=== PATIENT | female | born 1985 | race Caucasian/White ===

== ENCOUNTER → 2021-10-02 14:35 | Outpatient (CLI) | payer OTHER, SELFPAY ==
--- NOTE | ~2021-10-02 | US_ITS ---
EXAMINATION: US pelvic complete DATE: 10/02/2021 15:15 INDICATION: Enlarged uterus Comparison:04/19/2015 TECHNIQUE: Multiple transabdominal and endovaginal sonographic images of the pelvis performed. FINDINGS: The uterus measures 9.1 x 4.6 x 5.4 cm. There is an IUD present in the endometrium. The end ometrial complex measures 5 mm. The right ovary measures 3.3 x 2.5 x 2.7 cm. and the left ovary measures 2.3 x 1.7 x 1.9 cm. There a re small follicles in each ovary. Normal doppler signal in both ovaries. There is no free fluid in the pelvis. There are no abnormal masses seen on either side. IMPRESSION: 1. Unremarkable pelvic ultrasound. Reviewed, dictated and finalized at location [facility]. E TROOPER
== END ==
PROVIDERS: Visit Provider Nurse Practitioner
DX: N85.2 Hypertrophy of uterus (principal)
CPT/HCPCS: 76856

== ENCOUNTER 2021-10-26 08:25 | Outpatient (CLI) | payer OTHER, SELFPAY ==
--- NOTE | 2021-10-27 12:28 | WPDHOLTEREM ---
Holter/Event Monitor Holter/Event Monitor Date of procedure: 10/26/21 Holter/Event Procedure: 24 Hr Holter Monitor Indications: Palpitations Conclusion: 1. 24 hour holter monitor on 10/26/21. 2. Underlying rhythm is sinus rhythm with sinus arrhythmia. HR range 39-125 bpm; average HR 69 bpm. 3. There are 5 premature supraventricular complexes. No supraventricular tachycardia. 4. There is 1 premature ventricular complex. No ventricular tachycardia. 5. No sinoatrial or atrioventricular blocks. No significant pauses greater than 2 seconds. 6. No symptoms available for correlation.
== END 2021-10-26 08:26 | disposition home or self-care (01) ==
PROVIDERS: PCP Family Medicine; Visit Provider Physician Assistant
DX: R00.2 Palpitations (principal)
CPT/HCPCS: 93225; 93226

== ENCOUNTER 2021-10-28 22:46 | Emergency (ER) | payer OTHER, SELFPAY ==
--- NOTE | 2021-10-28 22:47 | ECG_ITS ---
Measurements Intervals [place] Rate: 106 P: 60 GA: 160 QRS: 69 QRSD: 86 T: 1 QT: 321 QTc: 427 Interpretive Statements SINUS TACHYCARDIA BORDERLINE ST-T WAVE ABNORMALITY- INFERIOR LEADS ABNORMAL ECG Electronically Signed On 10-29-2021 7:06:38 EMAIL MARKETING EXECUTIVE by Claudio Saunders D.O.
[2021-10-28 22:59] VITALS: BP 163/79; PULSE 104; RESP 17; TEMP 36.8; O2SAT 100
[2021-10-29 00:16] VITALS: BP 133/85; PULSE 95; RESP 18; O2SAT 100
--- NOTE | 2021-10-29 00:30 | ED.ARRPALP ---
HPI - Arrhythmia/Palpitations General Chief Complaint: Arrhythmia/Palpitations Stated Complaint: PALPATATIONS X2D Time Seen by Provider: 10/29/21 00:16 Source: patient History of Present Illness HPI narrative: Patient presents with palpitations. Patient reports multiple weeks where she will have episodes of a racing heart and feels shaky. She has been seen by her primary care doctor she reports her TSH was elevated but her electrolytes have been normal. She was placed on Holter monitor on was unsure of her results. She had another episode again today felt like her prior episodes so she came to the ER for evaluation. She denies recent fevers, cough, congestion, nausea, vomiting. She denies any significant family cardiac history. She has prior history of DVT she denies any history of estrogen use she denies recent procedures. She reports she is currently without symptoms Related Data Home Medications Medication Instructions Recorded Confirmed No Home Medications 10/21/19 10/28/21 Allergies Allergy/AdvReac Type Severity Reaction Status Date / Time levofloxacin Allergy Unknown Unknown Verified 10/28/21 23:03 Penicillins Allergy Unknown Unknown Verified 10/28/21 23:03 Review of Systems Review of Systems: CONSTITUTIONAL: Denies fever, chills, or sweats. EYES: Denies visual changes, redness, or discharge. ENT: Denies rhinorrhea, congestion, sore throat, or otalgia. CARDIOVASCULAR: Denies chest pain, palpitations, or edema. RESPIRATORY: Denies cough or dyspnea. GASTROINTESTINAL: Denies abdominal pain, nausea, vomiting, or diarrhea. GENITOURINARY: Denies dysuria or hematuria. SKIN: Denies rash or itching. MUSCULOSKELETAL: Denies back pain, joint pain, or myalgia. NEUROLOGIC: Denies headache, numbness, dizziness, or weakness. PSYCHIATRIC: Denies anxiety or depression. PMFSH Past Medical History Medical History (Updated 10/29/21 @ 00:36 by Ez Brunner MD) Palpitations Family History Family History Mother Diabetes mellitus Family history of malignant neoplasm of ovary Father Hypertension Social History Social History Alcohol intake: never Exam Narrative: GENERAL: Well-appearing, well-nourished, and in no acute distress. HEAD: Normocephalic, atraumatic. EYES: PERRLA and EOMI. ENT: Nares clear, no rhinorrhea or epistaxis. Mucous membranes moist. NECK: Supple. No masses. No JVD CHEST: Clear to auscultation. No respiratory distress. No wheezes rales or rhonchi HEART: Regular rate and rhythm. No murmur heard. Normal peripheral pulses. EXTREMITIES: Normal range of motion. No edema. SKIN: Warm, dry, no rash. NEURO: No focal deficits. Alert and oriented x3. PSYCH: Normal mood and affect. Course Vital Signs Vital signs: Vital Signs Temperature 36.8 C 10/28/21 22:59 Pulse Rate 104 H 10/28/21 22:59 Respiratory Rate 17 10/28/21 22:59 Blood Pressure 163/79 H 10/28/21 22:59 Pulse Oximetry 100 10/28/21 22:59 Temperature 36.8 C 10/28/21 22:59 Pulse Rate 79 10/29/21 00:59 Respiratory Rate 20 10/29/21 00:59 Blood Pressure 116/74 10/29/21 00:59 Pulse Oximetry 97 10/29/21 00:59 MDM - Arrhythmia/Palpitations MDM Narrative Medical decision making narrative: H&P as above, vss, pt looks clinically well, exam reassuring, labs and imaging were offered however patient has had recent evaluation by primary care provider and Holter monitor was unremarkable his EKG was also unremarkable symptomatic relief available as needed. Given duration of symptoms and patient's work-up thus far there is low concern for ACS, PE, dissection, electrolyte abnormalities. I reviewed patient's Holter monitor results with her with a reassuring Holter monitor patient was comfortable following up with her primary care doctor without further testing here in the ER. plan to tx/monitor as op w/ pcm
[2021-10-29 00:59] VITALS: BP 116/74; PULSE 79; RESP 20; O2SAT 97
== END 2021-10-29 00:58 | disposition home or self-care (01) ==
PROVIDERS: Emergency Provider Emergency Medicine; PCP Family Medicine
DX: R00.2 Palpitations (principal); R00.0 Tachycardia, unspecified
CPT/HCPCS: 93005; 99283

== ENCOUNTER 2021-10-30 10:01 | Emergency (ER) | payer OTHER, SELFPAY ==
[2021-10-30 10:19] VITALS: BP 140/89; PULSE 79; RESP 18; TEMP 37.5; O2SAT 100
--- NOTE | 2021-10-30 10:19 | ECG_ITS ---
Measurements Intervals [place] Rate: 71 P: 52 MA: 160 QRS: 69 QRSD: 84 T: 56 QT: 352 QTc: 385 Interpretive Statements SINUS RHYTHM NORMAL ECG Electronically Signed On 10-30-2021 11:45:26 [employer]ER PRINTING SUPERVISOR by Claudio Saunders D.O.
--- NOTE | 2021-10-30 11:08 | ED.SKABFB ---
HPI - Skin/Abscess/Foreign Bdy General Chief complaint: Urogenital-Female Stated complaint: lightheaded,tingling feeling in body Source: patient and RN notes reviewed Limitations: no limitations History of Present Illness HPI narrative: The vaccinated patient,an a.m. coffee drinker/non-smoker/occ drinker, presents with palpitations. Patient states she has been seen by her PMD and ED with noncontributory Holter monitoring & lab tests --except TSH 5.4 in the past. She now complains of similar intermittent usually nighttime palpitations. No fever, cough, precordial chest pain, VHD/CHD, vomiting/diarrhea/dehydration, anemia, vaginal bleeding, no presyncope but she occasionally feels positional lightheadedness. She also mentions she has urinary frequency, urgency without dysuria; no abdominal pain, discharge?declines STD testing. Patient advised and is planning on follow-up of thyroid with her PMD. Related Data Home Medications Medication Instructions Recorded Confirmed No Home Medications 10/21/19 10/30/21 Allergies Allergy/AdvReac Type Severity Reaction Status Date / Time levofloxacin Allergy Unknown Unknown Verified 10/30/21 10:27 Penicillins Allergy Unknown Unknown Verified 10/30/21 10:27 Review of Systems Review of Systems: General/Constitutional: No weight loss,fever Eyes: N0: Redness,discharge Ears/Nose/Throat: No: Epistaxis,ear discharge Respiratory: Denies: Hemoptysis Gastrointestinal: No Vomiting, Bleeding-rectal Skin: No Lumps, eruption Neurologic: No Focal Weakness,Sz Hematologic: Denies: Petechiae/Purpura Psychiatric: No: Suicida ideationl All Other Systems: Reviewed and Negative FORMERLY [facility], 1928–1983 Past Medical History Medical History (Updated 10/30/21 @ 11:02 by Srikanth Sánchez MD) Palpitations Family History Family History Mother Diabetes mellitus Family history of malignant neoplasm of ovary Father Hypertension Social History Social History Alcohol intake: never Comments At time of signature, agree with nursing past medical, surgical, social and family history. There is no relevant family history pertinent to the presenting complaint Exam Narrative: General Appearance: Well appearing, No distress EYE: PERRLA, Conjunctiva clear Ears: External ear normal Nose: Normal nose Mouth/Throat: Normal appearing, Normal lips Neck: Supple Respiratory: Airway patent, No respiratory distress Cardiovascular: RRR Abdomen: Soft, Non-tender, Musculoskeletal: Full ROM Skin: Warm, Dry Neurological: A&O x3, CN II-X intact Psychiatric: Normal mood, Normal affect Course Course Emergency Course: EKG normal sinus rhythm at 71, OK 0.16, QRS 0.08, QTc 0.375, normal axis 60-jaciel Vital Signs Vital signs: Vital Signs Temperature 99.5 F 10/30/21 10:19 Pulse Rate 79 10/30/21 10:19 Respiratory Rate 18 10/30/21 10:19 Blood Pressure 140/89 10/30/21 10:19 Pulse Oximetry 100 10/30/21 10:19 Temperature 99.5 F 10/30/21 10:19 Pulse Rate 79 10/30/21 10:19 Respiratory Rate 18 10/30/21 10:19 Blood Pressure 140/89 10/30/21 10:19 Pulse Oximetry 100 10/30/21 10:19 MDM - Skin/Abscess/Foreign Bdy Lab Data Labs: Urine Glucose Negative Reference Range: Negative Urine Bilirubin Negative Reference Range: Negative Urine Ketone Negative Reference Range: Negative Urine Specific [place] 1.010 Reference Range:1.001-1.035 Urine Blood Negative Reference Range: Negative * * Urine pH
== END 2021-10-30 11:06 | disposition home or self-care (01) ==
PROVIDERS: Emergency Provider Emergency Medicine; PCP Family Medicine
DX: R00.2 Palpitations (principal); R94.6 Abnormal results of thyroid function studies; R35.0 Frequency of micturition
CPT/HCPCS: 81003; 87086; 93005; 99213; G0463

== ENCOUNTER 2021-11-09 08:28 | Outpatient (CLI) | payer OTHER, SELFPAY ==
--- NOTE | 2021-11-09 09:07 | ECHO_ITS ---
Patient Info Name: Karen Downing Age: 36 years : 1985 Gender: Female Ht: 64 in Wt: 140 lbs BSA: 1.70 m2 HR: 64 bpm BP: 126 / 78 mmHg Technical Quality: Good Exam Date: 11/09/2021 9:30 AM Exam Location: [facility] Patient Status: Outpatient Admit Date: 11/09/2021 Staff Ordering Physician: Nathaniel Macario PA-C Splitter Machine: Sherita Severino RDCS Attending Provider: Nathaniel Macario PA-C Referring Physician: Amirah ORNELAS; Exam Type: CA echo doppler color flow Study Info Indications - palpitations Complete two-dimensional, color flow and Doppler transthoracic echocardiogram is performed. Summary 1. Complete two-dimensional, color flow and Doppler transthoracic echocardiogram is performed. 2. Left ventricular chamber dimension is normal. 3. Left ventricular systolic function is normal, estimated at 60-65%. 4. The left ventricular diastolic function is normal. 5. E/e' 6 is not elevated. 6. There is trace tricuspid valve regurgitation. 7. No pulmonary hypertension, estimated pulmonary arterial systolic pressure is 36 mmHg. 8. There is trace pulmonic regurgitation. Left Ventricle E/e' 6 is not elevated. Left ventricular chamber dimension is normal. Left ventricular systolic function is normal, estimated at 60-65%. The left ventricular diastolic function is normal. Right Ventricle Right ventricular chamber dimension is normal. Right ventricular systolic function is normal. Left Atria Left atrial chamber dimension is normal. Right Atria Right atrial chamber dimension is normal. Aortic Valve The aortic valve is trileaflet. There is no aortic valve stenosis. There is no aortic valve regurgitation. Pulmonic Valve There is trace pulmonic regurgitation. Mitral Valve There is no mitral valve stenosis. There is no mitral valve regurgitation. Tricuspid Valve There is trace tricuspid valve regurgitation. No pulmonary hypertension, estimated pulmonary arterial systolic pressure is 36 mmHg. Pericardium/Pleural There is no pericardial effusion. Inferior Vena Cava Normal inferior vena cava with >50% collapse upon inspiration consistent with normal right atrial pressure, 5 mmHg. Aorta The aortic root size at the sinus of Valsalva is normal. Left Ventricular Outflow Tract Name Value Normal LVOT 2D LVOT Diameter 2.0 cm LVOT Doppler LVOT Peak Gradient 7 mmHg LVOT Mean Gradient 4 mmHg LVOT VTI 26 cm LVOT VTI/AV VTI Ratio 0.8 LVOT Stroke Volume 81 ml LVOT CO 17.3 l/min LVOT CI 10.2 l/min/m2 Pulmonic Valve Name Value Normal PV Doppler PV Peak Gradient 4 mmHg Mitral Va
== END 2021-11-09 08:29 | disposition home or self-care (01) ==
PROVIDERS: PCP Family Medicine; Visit Provider Physician Assistant Medical
DX: R00.2 Palpitations (principal)
CPT/HCPCS: 93306

== ENCOUNTER 2022-01-23 14:07 | Outpatient (CLI) | payer BC, SELFPAY ==
--- NOTE | ~2022-01-23 | US_ITS ---
EXAMINATION: US arterial ankle brachial ind DATE: 01/23/2022 14:56 INDICATION: Paresthesias TECHNIQUE: Segmental pressures and plethysmographic and Doppler waveforms of the brachial and lower e xtremity arteries were obtained. COMPARISON: None. FINDINGS: Right and left brachial artery pressures of 98 mm Hg and 117 mm Hg, respectively, are concordant (nor mal difference <= 30 mmHg). The right ankle-brachial index (CORNELIO) is 1.10 (normal >= 0.9-1.0). The right great toe-brachial index (TBI) is 0.44 (normal >= 0.65). Arterial Doppler waveforms are biphasic. The left CORNELIO is 1.08. The left TBI is 0.28. Arterial Doppler waveforms are biphasic. IMPRESSION: Normal right and left CORNELIO of 1.10 and 1.08, respectively Abnormally low TBI of 0.44 on the right and 0.28 on the left, suggesting small vessel disease Reviewed, dictated and finalized at [facility]. Reviewed, dictated and finalized at location A. TRONIC GLUER
== END 2022-01-23 14:08 | disposition home or self-care (01) ==
PROVIDERS: PCP Family Medicine; Visit Provider Physician Assistant Medical
DX: R20.9 Unspecified disturbances of skin sensation (principal)
CPT/HCPCS: 93922

== ENCOUNTER 2024-07-03 14:42 | Outpatient (CLI) | payer BC, SELFPAY ==
--- NOTE | ~2024-07-03 | US_ITS ---
EXAMINATION: US OB <=14 wk fetus w TV DATE: 07/03/2024 15:52 INDICATION: Pelvic pain. TECHNIQUE: Real-time transabdominal and transvaginal pelvic ultrasound was performed. COMPARISON: None. FINDINGS: TRANSABDOMINAL ULTRASOUND: The uterus measures 9.9 x 5.5 x 6.4 cm. TRANSVAGINAL ULTRASOUND: The endometrial complex measures 15 mm in thickness. There is no visible int rauterine gestational sac. The right ovary is not visualized. The left ovary measures 2.7 x 2.4 x 2.2 cm. There is ascites of mixed echogenicity. IMPRESSION: 1. No visible intrauterine gestational sac. This result may be seen with normal early , ect opic , spontaneous . 2. Ascites of mixed echogenicity suspicious for hemoperitoneum. This finding increases suspicion for ectopic . Correlate with beta-hCG. Reviewed, dictated and finalized at location A. IMPRESSION: 1. No visible intrauterine gestational sac. This result may be seen with eliana l early , ectopic , spontaneous . 2. Ascites of mixed echogenicity suspicious for hemoperitoneum. This finding in creases suspicion for ectopic . Correlate with beta-hCG.
== END 2024-07-03 14:43 | disposition home or self-care (01) ==
LOC: ANHIMG 14:46
PROVIDERS: PCP Family Medicine; Visit Provider Obstetrics & Gynecology Gynecology
DX: R10.2 Pelvic and perineal pain (principal)
CPT/HCPCS: 76801; 76817

== ENCOUNTER 2024-07-03 16:39 | Day surgery (SDC) | payer BC, SELFPAY ==
[2024-07-03] VITALS (38 sets, daily range): BP systolic 93–128; BP diastolic 40–79; PULSE 63–106; RESP 14–20; TEMP 36.4–36.6; O2SAT 98–100
--- NOTE | 2024-07-03 16:56 | WPDANESEPPF ---
Anes - Initial Pre Proc Eval Procedure: Diagnostic laparoscopy Date/Time: 07/03/24 16:56 Surgeon: Jayna Pre Op Diagnosis: ruptured ectopic Pre Op Diagnosis: abdominal pain, pt , US shows blood Patient Data Age: 38 Gender: F Height: 1.63 m Weight: 65.9 kg Last Vital Signs Temp 97.8 F 07/03/24 16:44 Pulse 106 H 07/03/24 16:44 Resp 18 07/03/24 16:44 BP 122/79 07/03/24 16:44 Pulse Ox 100 07/03/24 16:44 O2 Del Method Room Air 07/03/24 16:44 Allergies Allergy/AdvReac Type Severity Reaction Status Date / Time levofloxacin Allergy Unknown Unknown Verified 07/03/24 17:10 Penicillins Allergy Unknown Unknown Verified 07/03/24 17:10 Home Medications Medication Instructions Recorded Confirmed Type [id number]-rbv-kfhg 18 mg-FA 400 tablet PO 12/05/21 02/15/23 History mcg-calcium 500 mg-vit K 50 mcg tablet (Women's Multivitamin) ascorbate calcium (vitamin C) 500 500 mg PO BID 01/17/22 02/15/23 History mg tablet cetirizine 10 mg tablet (Zyrtec) 10 mg PO DAILY PRN 01/17/22 02/15/23 History famotidine 20 mg tablet (Pepcid AC) 20 mg PO DAILY 01/17/22 02/15/23 History ecszjbrf-iiv-Q. coag-B. tablet PO DAILY 01/31/22 02/15/23 History subtilis-inulin 1 billion cell-1 gram chew tab (Culturelle Probiotic-Multivit) omega-3 fatty acids-fish oil 300 cap PO 08/16/22 02/15/23 History mg-500 mg capsule (Fish Oil) Patient hx anesthesia problems: none Family hx anesthesia problems: none Results Review: All pre-operative results and documents have been reviewed as part of the pre-operative evaluation. [facility] Past Medical History Medical History Bradycardia COVID-19 long hauler GERD (gastroesophageal reflux disease) Mast cell activation syndrome Palpitations Raynaud phenomenon Ruptured ectopic Family History Family History Mother Diabetes mellitus Family history of malignant neoplasm of ovary Father Hypertension Cancer of kidney Social History Social History Smoking status: Never smoker Alcohol intake: never Substance use: never Substance use type: does not use Lack of Transportation: No Lack of Food: Never True Current Housing: I Have Housing Concerned About Future Housing: No Difficulty Paying Gas/Electric Bills: No Difficulty Paying for Meds: No Currently Unemployed: No Education: Bachelor's Degree Difficulty w/ Childcare or Family Care: No Living arrangements: with family Occupation/Education: occupation Gender identity (if verbalized by the patient): Female Spiritual care concerns: No Anes - Eval Final PreProcedure Day of Procedure 07/03/24 16:56 Patient weight: normal Heart: regular rate and rhythm Lungs: clear to auscultation Airway: Mallampati scale class II Neurological: alert and oriented Last oral intake: 4 hours ASA classification: III Emergent: yes Anesthetic plan: proceed Anesthesia type and monitoring: general and standard monitoring Results Review: All pre-operative results and documents have been reviewed as part of the pre-operative evaluation. Informed Consent: The patient's anesthetic plan and its attendant risks and benefits were discussed with the patient/family/POA. Questions were solicited and answers provided to the satisfaction of the patient/family/POA.
--- NOTE | 2024-07-03 17:00 | ED.ABDPAIN ---
HPI - Abdominal Pain General Chief Complaint: Abdominal Pain Stated Complaint: abdominal pain, pt , US shows blood Time Seen by Provider: 07/03/24 16:59 Source: patient and family Mode of arrival: ambulatory Limitations: no limitations History of Present Illness HPI narrative: 38 years old white female referred to the emergency room from the radiology department for pelvic ultrasound showing possible ectopic . Patient is 4, para 3, 0, workup this morning with lower abdominal pain and vaginal spotting. Called her OBGYN order pelvic ultrasound which showed No visible intrauterine gestational sac. This result may be seen with normal early , ectopic , spontaneous . Ascites of mixed echogenicity suspicious for hemoperitoneum. finding increases suspicion for ectopic . Correlate with beta HCG Dr. Aguilar came to the emergency room to manage the patient. Related Data Home Medications Medication Instructions Recorded Confirmed cetirizine 10 mg tablet (Zyrtec) 10 mg PO DAILY PRN 01/17/22 02/15/23 famotidine 20 mg tablet (Pepcid AC) 20 mg PO DAILY 01/17/22 02/15/23 Allergies Allergy/AdvReac Type Severity Reaction Status Date / Time levofloxacin Allergy Unknown Unknown Verified 07/03/24 17:10 Penicillins Allergy Unknown Unknown Verified 07/03/24 17:10 Review of Systems Review of Systems: All systems reviewed & are unremarkable except as noted in HPI and below PMFSH Past Medical History Medical History Bradycardia COVID-19 long hauler GERD (gastroesophageal reflux disease) History of pyloric stenosis as a child Mast cell activation syndrome (normal spontaneous vaginal delivery) x3 Palpitations Raynaud phenomenon Family History Family History Mother Diabetes mellitus Family history of malignant neoplasm of ovary Father Hypertension Cancer of kidney Social History Social History Smoking status: Never smoker Alcohol intake: never Substance use: never Substance use type: does not use Lack of Transportation: No Lack of Food: Never True Current Housing: I Have Housing Concerned About Future Housing: No Difficulty Paying Gas/Electric Bills: No Difficulty Paying for Meds: No Currently Unemployed: No Education: Bachelor's Degree Difficulty w/ Childcare or Family Care: No Living arrangements: with family Occupation/Education: occupation Gender identity (if verbalized by the patient): Female Spiritual care concerns: No Exam Narrative: General appearance: Well-developed, well-nourished Skin: Normal color Head: Normocephalic, nontraumatic Eyes: Clear conjunctiva ENT: Oropharynx normal, ears normal, nose normal Neck: Supple, nontender Chest and respiratory: Airway patent, no respiratory distress, no accessory muscle use Heart: Regular rate/rhythm Abdomen: Soft, mild diffuse lower abdominal tenderness, no organomegaly, quiet bowel sounds Vascular: Normal peripheral pulses, normal capillary refill. Musculoskeletal: Normal range of motion, nontender back Neurologic: Alert and oriented ?3, CORN SHUCKER is normal as tested, no gross motor deficit Course Vital Signs Vital signs: Vital Signs Temperature 36.6 C 07/03/24 16:44 Pulse Rate 106 H 07/03/24 16:44 Respiratory Rate 18 07/03/24 16:44 Blood Pressure 122/79 07/03/24 16:44 Pulse Oximetry 100 07/03/24 16:44 Oxygen Delivery Room Air 07/03/24 16:44 Temperature 37.2 C 07/04/24 07:45 Pulse Rate 60 06/25
--- NOTE | 2024-07-03 17:10 | PM.HPGS ---
History of Present Illness History of Present Illness Consent: Risks, benefits, and alternatives have been discussed and questions answered. Patient agrees to proceed with procedure. Chief complaint: abdominal pain, pt , US shows blood Narrative: Karen Downing is a 38 year old female @ 7 4/7 wks with onset of abdominal cramping and nausea that began this am. Pain decreased after tylenol but then increased this afternoon. She was sent for a stat ultrasound which shows hemoperitoneum, no intrauterine , no discrete adnexal mass. Patient is now having difficulty breathing due to pain in her right upper quadrant. It was discussed with the patient the likely diagnosis of ruptured ectopic . Plan is to proceed with laparoscopic management. Risks of salpingectomy and oophorectomy are discussed. Typical risks of surgery are also reviewed. Patient agrees to the stated plan. Review of Systems Review of Systems: All systems reviewed & are unremarkable except as noted in HPI and below ( HPI) [facility] Past Medical History Medical History (Updated 07/03/24 @ 17:16 by Sarah Dorantes MD) Bradycardia COVID-19 long hauler GERD (gastroesophageal reflux disease) History of pyloric stenosis as a child Mast cell activation syndrome (normal spontaneous vaginal delivery) x3 Palpitations Raynaud phenomenon Family History Family History Mother Diabetes mellitus Family history of malignant neoplasm of ovary Father Hypertension Cancer of kidney Social History Social History Smoking status: Never smoker Alcohol intake: never Substance use: never Substance use type: does not use Lack of Transportation: No Lack of Food: Never True Current Housing: I Have Housing Concerned About Future Housing: No Difficulty Paying Gas/Electric Bills: No Difficulty Paying for Meds: No Currently Unemployed: No Education: Bachelor's Degree Difficulty w/ Childcare or Family Care: No Living arrangements: with family Occupation/Education: occupation Gender identity (if verbalized by the patient): Female Spiritual care concerns: No Meds Home Medications and Allergies Home Medications Medication Instructions Recorded Confirmed Type jlnuddey-fmg-umbi 18 mg-FA 400 tablet PO 12/05/21 02/15/23 History mcg-calcium 500 mg-vit K 50 mcg tablet (Women's Multivitamin) ascorbate calcium (vitamin C) 500 500 mg PO BID 01/17/22 02/15/23 History mg tablet cetirizine 10 mg tablet (Zyrtec) 10 mg PO DAILY PRN 01/17/22 02/15/23 History famotidine 20 mg tablet (Pepcid AC) 20 mg PO DAILY 01/17/22 02/15/23 History apczaxfs-met-C. coag-B. tablet PO DAILY 01/31/22 02/15/23 History subtilis-inulin 1 billion cell-1 gram chew tab (Culturelle Probiotic-Multivit) omega-3 fatty acids-fish oil 300 cap PO 08/16/22 02/15/23 History mg-500 mg capsule (Fish Oil) Allergies Allergy/AdvReac Type Severity Reaction Status Date / Time levofloxacin Allergy Unknown Unknown Verified 07/03/24 17:10 Penicillins Allergy Unknown Unknown Verified 07/03/24 17:10 Vital Signs Vital Signs - 24 hr 07/03/24 16:44 Temperature 97.8 F Pulse Rate 106 H Respiratory Rate 18 Blood Pressure 122/79 Pulse Oximetry 100 Oxygen Delivery Room Air Exam Const: General: uncomfortable Nutritional Appearance: average body habitus Orientation/consciousness: patient oriented x3 Resp: Effort & Inspection: normal respiratory effort GI: Inspection: normal to inspection GI Palp: Yes Tenderness to palpation present (GI) and Yes Guarding due to palpation present (GI) Assessment and Plan Assessment and plan (1) Ruptured ectopic : Code(s): O00.90 - Unspecified ectopic without intrauterine Status: Acute Assessment and Plan: plan to proc
[2024-07-03 17:15] LABS: Basophils Absolute Auto 0.1 K/mm3 (0.0-0.1); Basophils Percent Auto 0.3 % (0.2-1.2); Eosinophils Percent Auto 0.1 % (0-4.4); Hematocrit 30.2 % (37.0-47.0); Hemoglobin 10.3 g/dL (12.0-15.0); Immature Granulocyte Absolute 0.06 K/mm3 (0.00-0.031); Immature Granulocyte Percent A 0.4 % (0-0.5); Lymphocytes Absolute Auto 1.87 K/mm3 (0.9-3.2); Lymphocytes Percent Auto 11.8 % (18.3-44.2); Mean Corpuscular HGB Conc 34.1 g/dl (32-36); Mean Corpuscular Hemoglobin 31.4 pg (26-34); Mean Corpuscular Volume 92.1 fl (80-100); Mean Platelet Volume 10.6 fl (7.4-10.4); Monocytes Absolute Auto 1.1 K/mm3 (0.1-0.6); Monocytes Percent Auto 6.8 % (2.6-8.5); Neutrophils Absolute Auto 12.7 K/mm3 (1.3-6.7); Neutrophils Percent Auto 80.6 % (45.5-73.1); Platelet Count Result 225 k/mm3 (150-375); Red Blood Count 3.28 M/mm3 (4.2-5.4); Red Cell Distribution Width 11.6 % (11.5-14.5); White Blood Count 15.8 K/mm3 (4.5-10.0)
[2024-07-03] MEDS: SODIUM CHLORIDE 0.9% IV 1,000 ML 999 ML IV CONT (17:17)
[2024-07-03] MEDS: ONDANSETRON INJ 4 MG/2 ML VIAL IV PUSH (17:18)
[2024-07-03] MEDS: HYDROmorphone HCL INJ (*CRX) 1 MG/ML SYR 0.5 MG IV PUSH ×3 (17:19→23:40)
[2024-07-03 17:25] LABS: Alanine Aminotransferase 14 U/L (6-35); Albumin Level 4.3 g/dL (3.5-5.1); Alkaline Phosphatase 40 U/L (38-126); Anion Gap 11 mmol/L (4-12); Aspartate Amino Transferase 26 U/L (14-36); Bilirubin,Total 0.3 mg/dL (0.2-1.3); Blood Urea Nitrogen 12 mg/dL (7-17); Calcium 9.1 mg/dL (8.4-10.2); Carbon Dioxide 21 mmol/L (22-30); Chloride 104 mmol/L (98-107); Estimated CRCL calculation 72 ml/min; Estimated Glomerular Filt Rate > 60; Glucose 145 mg/dL (65-110); Sodium 136 mmol/L (137-145)
[2024-07-03 17:26] LABS: Prothrombin Time 13.4 Seconds (11.1-14.7)
--- NOTE | 2024-07-03 17:28 | PC.NURSE ---
Report given to Starr from OR.
[2024-07-03] MEDS: LACTATED RINGERS 1,000 ML 30 ML IV CONT ×2 (18:00→19:07)
--- NOTE | 2024-07-03 18:12 | P.PNAN_ITS ---
Anes - Eval Final PreProcedure Day of Procedure 07/03/24 18:12 Patient weight: normal Heart: regular rate and rhythm Lungs: clear to auscultation Airway: Mallampati scale class II Neurological: alert and oriented Last oral intake: >/= 8 hours ASA classification: III Emergent: yes Anesthetic plan: proceed Anesthesia type and monitoring: general ETT and standard monitoring Results Review: All pre-operative results and documents have been reviewed as part of the pre- operative evaluation. Informed Consent: The patient's anesthetic plan and its attendant risks and benefits were discussed with the patient/family/POA. Questions were solicited and answers provided to the satisfaction of the patient/family/POA.
--- NOTE | 2024-07-03 18:12 | SUR.PREOP ---
1755 PATIENT ARRIVED TO PACU FROM ED. AWAKE, ALERT, ORIENTED X 3. PATIENT REMOVED ALL CLOTHES AND PUT ON GOWN. OR TEAM HERE. 1800 TRANSPORTED TO OR VIA STRETCHER.
--- NOTE | 2024-07-03 19:04 | P.OP_ITS ---
Procedure Note - Detailed Date of Procedure 07/03/24 Pre-op Diagnosis Ruptured ectopic with hemoperitoneum Post-op Diagnosis Same ( ruptured right ectopic ovarian with adhesion of the ectopic to the small bowel) Procedure Performed right salpingo-oophorectomy Surgeon Sarah Dorantes MD Anesthesia General Findings hemoperitoneum ruptured right ovarian ectopic with tissue adherent to the small bowel normal-appearing bilateral tubes and uterus Description of Procedure The patient is taken to the operating room and placed under anesthesia in the dorsal lithotomy position. She was prepped and draped in the usual sterile f ashion. The bladder was drained with a red rubber catheter. The bivalve speculum was placed in the vagina and the cervix grasped on the anterior lip with a tenaculum. The acorn manipulator was placed. Speculum was removed. Attention was turned to the abdomen. A horizontal skin incision was made at the base of the umbilicus. The abdomen was tented and the Veress needle placed. Opening patient pressure was 5mmHg. Water drop test was normal. Pneumoperitoneum was obtained to a patient pressure of 15mmHg. The Veress needle was removed and the abdomen was again tented while the 5mm Optiview trocar was placed. Intra-abdominal placement was confirmed with the laparoscope. The 2 additional 5mm trocars were placed in the left and right lower quadrants 2cm above symphysis pubis. The visible blood was suctioned until visualization of the organs was possible. Initial findings the ectopic tissue on the small bowel with additional findings of the main ectopic on the right ovary ruptured and bleeding at the distal end. The bilateral tubes appear grossly normal and the left ovary appears grossly normal. The uterine surface appears normal. Pictures of the bowel lesion were sent to Dr. Dudley on-call and as it was not a through and through lesion decision was made to leave it in situ and use methotrexate postoperative. The tube and ovary are elevated and the LigaSure was used to cauterize and cut the infundibulopelvic ligament, the mesosalpinx, and cross-clamp the tube. Good hemostasis was obtained. The 10mm port was exchanged in the left lower quadrant and the Endo-Catch bag was placed through this port. The specimen is placed into the bag and removed while removing the trocar and extending the incision. The large suction is then able to be placed and removed the large clots from the cul-de-sac. The patient was placed in reverse Trendelenburg and additional suctioning of blood is performed. The tubo-ovarian pedicle is again inspected and noted to be hemostatic. The instruments are removed. The left lower incision is closed using 0 Vicryl running in the fascia and all 3 skin incisions are closed using 4-0 Vicryl in a subcuticular fashion. Dermaflex was used over the incisions. The vaginal instruments are removed. The patient was awakened from anesthesia and taken to recovery in stable condition. Sponge, needle, and instrument counts are correct per the OR staff. Estimated Blood Loss 350 Drains No Packing No Pathology Yes ( Right tube and) Complications No immediate complications Condition Stable Disposition PACU
[2024-07-03] MEDS: fentaNYL CITRATE INJ (*CRX) 100 MCG/2 ML VIAL 25 MCG IV PUSH ×4 (19:19→19:45)
[2024-07-03] MEDS: LACTATED RINGERS 1,000 ML 100 ML IV CONT (21:10)
[2024-07-03] MEDS: LORATADINE 10 MG TABLET PO (21:45)
[2024-07-03] MEDS: FAMOTIDINE 20 MG TABLET PO (22:30)
[2024-07-03] MEDS: HYDROcodone/acetaminophen (*CRX) 10-325 MG TABLET 1 TAB PO (22:40)
[2024-07-03] MEDS: SIMETHICONE 80 MG TAB.CHEW PO (23:40)
[2024-07-04] VITALS (51 sets, daily range): BP systolic 105; BP diastolic 56; PULSE 59–92; RESP 14; TEMP 37.2; O2SAT 79–100
[2024-07-04] MEDS: METHOTREXATE SODIUM/PF 50 MG/2 ML VIAL 85.5 MG IM (00:35)
[2024-07-04] MEDS: HYDROcodone/acetaminophen (*CRX) 10-325 MG TABLET 1 TAB PO (04:14)
--- NOTE | 2024-07-04 04:45 | PC.NURSE ---
0445 PT CALLS OUT WITH COMPLAINTS OF BLADDER PAIN AND PRESSURE. PT UNABLE TO VOID FREELY ON TOILET. BLADDER SCAN COMPLETED. 867 ML NOTED. STRAIGHT CATH DONE. 800 ML OUTPUT, CLEAR YELLOW URINE.
[2024-07-04 05:46] LABS: Hematocrit 27.4 % (37.0-47.0); Hemoglobin 9.1 g/dL (12.0-15.0); Mean Corpuscular HGB Conc 33.2 g/dl (32-36); Mean Corpuscular Hemoglobin 31.2 pg (26-34); Mean Corpuscular Volume 93.8 fl (80-100); Mean Platelet Volume 10.6 fl (7.4-10.4); Platelet Count Result 209 k/mm3 (150-375); Red Blood Count 2.92 M/mm3 (4.2-5.4); Red Cell Distribution Width 11.9 % (11.5-14.5); White Blood Count 12.1 K/mm3 (4.5-10.0)
--- NOTE | 2024-07-04 06:28 | PC.NURSE ---
[address] PERDOMO TO INFORM ABOUT PT BLADDER SCAN RESULTS 727, ORDERS RECEIVED TO PLACE A MOSER.
[2024-07-04] MEDS: SIMETHICONE 80 MG TAB.CHEW PO (07:26)
[2024-07-04] MEDS: ACETAMINOPHEN 500 MG TABLET 1000 MG PO (07:26)
[2024-07-04] MEDS: IBUPROFEN 600 MG TABLET PO (08:41)
--- NOTE | 2024-07-04 09:16 | PM.GYNPNOP ---
HOME ASSESSMENT NURSE - A/P Postoperative Procedures: Procedures Operation Date: 07/03/24 17:30 Actual Procedure Side Surgeon p laparoscopic right salpingo-oophorectomy, evacuation of clot Not Applicable Sarah Dorantes MD Postoperative day: 1 Postoperative status: doing well (explained operative findings, methotrexate, and plan for HCG Sat, Sat, and Saturday then weekly) and urinary retention (DC home with nichols) Postoperative plan: routine post-op care and discharge Time Spent With Patient Time: Total time spent is greater than 50% in coordination of care (as documented) at patient's floor/unit and/or counseling patient: Time with patient: 15 - 25 minutes HOME ASSESSMENT NURSE- PN:Subj Post-Op Subjective Date/time seen: 07/04/24 09:16 Interval history: Pt. unable to void so nichols placed. Has had problem in past and been evaluated by urology. Likely from narcotics. Subjective: patient reports feeling better, patient desires discharge, pain is well controlled and patient is tolerating oral intake Exam Narrative: inc c/d/i abdomen soft, nt, nd HOME ASSESSMENT NURSE - PN: Obj Data Vital Signs Vital Signs: Vital Signs - 24 hr 07/03/24 16:44 07/03/24 19:07 07/03/24 19:20 Temperature 97.8 F 97.5 F L Pulse Rate 106 H 70 63 Respiratory Rate 18 20 15 Blood Pressure 122/79 93/47 L 98/53 L Pulse Oximetry 100 100 100 Oxygen Delivery Room Air Simple Face Mask Simple Face Mask Oxygen Flow Rate 8 8 07/03/24 19:35 07/03/24 19:50 07/03/24 20:21 Temperature Pulse Rate 92 72 83 Respiratory Rate 14 14 Blood Pressure 128/68 120/55 L 116/54 L Pulse Oximetry 100 100 Oxygen Delivery Simple Face Mask Room Air Oxygen Flow Rate 8 07/03/24 20:30 07/03/24 21:24 07/03/24 21:29 Temperature Pulse Rate 73 Respiratory Rate Blood Pressure 107/46 L Pulse Oximetry 100 100 Oxygen Delivery Oxygen Flow Rate 07/03/24 21:34 07/03/24 21:39 07/03/24 21:43 Temperature Pulse Rate Respiratory Rate Blood Pressure Pulse Oximetry 100 99 100 Oxygen Delivery Oxygen Flow Rate 07/03/24 21:49 07/03/24 21:54 07/03/24 21:59 Temperature Pulse Rate Respiratory Rate Blood Pressure Pulse Oximetry 98 99 98 Oxygen Delivery Oxygen Flow Rate 07/03/24 22:04 07/03/24 22:09 07/03/24 22:14 Temperature Pulse Rate Respiratory Rate Blood Pressure Pulse Oximetry 99 99 99 Oxygen Delivery Oxygen Flow Rate 07/03/24 22:19 07/03/24 22:23 07/03/24 22:29 Temperature Pulse Rate Respiratory Rate Blood Pressure Pulse Oximetry 98 99 100 Oxygen Delivery Oxygen Flow Rate 07/03/24 22:34 07/03/24 22:39 07/03/24 22:44 Temperature Pulse Rate Respiratory Rate Blood Pressure Pulse Oximetry 100 99 99 Oxygen Delivery Oxygen Flow Rate 07/03/24 22:49 07/03/24 22:54 07/03/24 22:59 Temperature Pulse Rate Respiratory Rate Blood Pressure Pulse Oximetry 98 98 98 Oxygen Delivery Oxygen Flow Rate 07/03/24 23:04 07/03/24 23:09 07/03/24 23:14 Temperature Pulse Rate Respiratory Rate Blood Pressure Pulse Oximetry 98 99 99 Oxygen Delivery Oxygen Flow Rate 07/03/24 23:19 07/03/24 23:24 07/03/24 23:29 Temperature Pulse Rate Respiratory Rate Blood Pressure Pulse Oximetry 100 99 98 Oxygen Delivery Oxygen Flow Rate 07/03/24 23:34 07/03/24 23:39 07/03/24 23:51 Temperature Pulse Rate Respiratory Rate Blood Pressure Pulse Oximetry 100 100 100 Oxygen Delivery Oxygen Flow Rate 07/03/24 23:53 07/03/24 23:56 07/04/24 00:01 Temperature Pulse Rate 73 Respiratory Rate Blood Pressure 101/40 L Pulse Oximetry 100 100 Oxygen Delivery Oxygen Flow Rate 07/04/24 00:06 07/04/24 00:11 07/04/24 00:16 Temperature Pulse Rate Respiratory Rate Blood Pressure Pulse Oximetry 100 100 99 Oxygen Delivery Oxygen Flow Rate 07/04/24 00:21 08
--- NOTE | 2024-07-04 09:19 | PM.DS ---
DS: Admitting Diagnosis Discharge Date 07/04/24 Admitting Diagnosis ruptured ectopic DS: Discharge Diagnosis Discharge Diagnosis (1) Ruptured ectopic : Code(s): O00.90 - Unspecified ectopic without intrauterine Status: Acute Assessment and Plan: ovarian with small bowel involvement DS: Summary Hospital Course Hospital Course: Tolerating regular diet and ambulation. Not able to void and nichols placed after 2nd time. Pain under good control. DC home with nichols. Status at Discharge Functional status at discharge: independent ambulation Overall status at discharge: patient is progressing back to baseline Time Spent with Patient Time attestation: Total time spent providing and/or coordinating discharge services: DS: Data Data Completed and Pending Pending studies at discharge: Pending at discharge 07/03/24 18:44 Surgical [PTH] Routine Labs on day of discharge: Labs from last 24 hours 07/04/24 07/03/24 05:31 17:09 WBC 12.1 H 15.8 H RBC 2.92 L 3.28 L Hgb 9.1 L 10.3 L Hct 27.4 L 30.2 L MCV 93.8 92.1 MCH 31.2 31.4 MCHC 33.2 34.1 RDW 11.9 11.6 Plt Count 209 225 MPV 10.6 H 10.6 H Immature Gran % (Auto) 0.4 Neut % (Auto) 80.6 H Lymph % (Auto) 11.8 L [place] % (Auto) 6.8 Eos % (Auto) 0.1 Baso % (Auto) 0.3 Lymph # (Auto) 1.87 [place] # (Auto) 1.1 H Eos # (Auto) 0.0 Baso # (Auto) 0.1 Abs Immat Gran (auto) 0.06 H Absolute Neuts (auto) 12.7 H Absolute Nucleated RBC 0.000 Nucleated RBC % 0.0 PT 13.4 INR 1.0 APTT 23.0 Sodium 136 L Potassium 4.0 Chloride 104 Carbon Dioxide 21 L Anion Gap 11 BUN 12 Creatinine 0.80 Estim Creat Clear Calc 72 Estimated GFR > 60 Glucose 145 H Calcium 9.1 Total Bilirubin 0.3 AST 26 ALT 14 Alkaline Phosphatase 40 Total Protein 7.0 Albumin 4.3 Beta HCG, Quant 5331.20 9930.50 Blood Type O Positive Antibody Screen Negative Screen Not Reportable Baby's Blood Type Not Reportable Baby's [place] Not Reportable Doses of RhIg Required 0 Discharge Plan Discharge Patient Disposition: Home, Self-Care Patient Instructions: Antibiotic Form Stand Alone Forms: General Discharge Instructions Follow-up/Referrals: Lucy Lopez MD [Physician] - (NO need to follow up with pcp) Sarah Dorantes MD [Primary Care Provider] - Discharge Medications: New hydrocodone-acetaminophen 5-325 mg tablet 1 tablet PO Q4H PRN (Reason: pain) Qty: 14 0RF Continued famotidine [Pepcid AC] 20 mg tablet 20 mg PO DAILY cetirizine [Zyrtec] 10 mg tablet 10 mg PO DAILY PRN Discontinued Women's Multivitamin 18 mg-400 mcg- 500 mg-50 mcg tablet PO Culturelle Probiotic-Multivit 1 billion cell- 1 gram tablet,chewable PO DAILY ascorbate calcium (vitamin C) 500 mg tablet 500 mg PO BID Fish Oil 300-500 mg capsule PO
== END 2024-07-04 10:40 | disposition home or self-care (01) ==
LOC: ANHED 17:22 → ANHSURGERY 17:22 → ANHOBPP 20:12
PROVIDERS: Emergency Provider Emergency Medicine; PCP Obstetrics & Gynecology Gynecology; Visit Provider Obstetrics & Gynecology Gynecology
PROC: (CPT 49320; principal; 2024-07-03 17:30)
DX: O00.101 Right tubal pregnancy without intrauterine pregnancy (principal); K66.1 Hemoperitoneum
CPT/HCPCS: 59151; 36415; 76801; 76817; 80053; 84702; 85025; 85027; 85461; 85610; 85730; 86850; 86900; 86901; 88305; 96374; 96375; 99199; 99285; A9270; J1170; J2250; J2405; J3010; J7030; J7120; J9260

== ENCOUNTER 2024-10-20 12:49 | Outpatient (CLI) | payer BC, SELFPAY ==
--- NOTE | ~2024-10-20 | US_ITS ---
US pelvic complete Ordering provider: Noni Bledsoe, [employer] History: . PELVIC PAIN . Comparison: None. Technique: Transabdominal and endovaginal ultrasound of the pelvis (Doppler ultrasound interrogation techniques used as needed for this exam.) FINDINGS: CERVIX: Normal. UTERUS: Measures 10.3x 5.3x cm in length which is within normal limits and is anteverted. No myometr ial masses. ENDOMETRIUM: Normal in thickness measuring 11 mm. (Note: the premenopausal endometrium may measure up to 16 mm when in the secretory phase.) No endometrial masses, cysts or fluid. CUL DE SAC: No free fluid. RIGHT OVARY: Surgically removed. LEFT OVARY: Normal in size measuring 3.9x 3.3x 3.2 cm. Normal echotexture. Doppler vascular flow pres ent. Follicles are noted. ADNEXA: Normal. No mass. IMPRESSION: Slightly thickened endometrium. Correlation with the menstrual stage is advised. Otherwise, normal pe lvic ultrasound. Reviewed, dictated and finalized at location A. STORE MARKETING REPRESENTATIVE IMPRESSION: Slightly thickened endometrium. Correlation with the menstrual stage is advised . Otherwise, normal pelvic ultrasound.
== END 2024-10-20 12:50 | disposition home or self-care (01) ==
LOC: MICIMG 12:50
PROVIDERS: PCP Nurse Practitioner Women's Health; Visit Provider Nurse Practitioner Women's Health
DX: R10.2 Pelvic and perineal pain (principal)
CPT/HCPCS: 76856